=== PATIENT | male | born 1975 | race Caucasian/White ===

== ENCOUNTER 2018-08-30 15:16 | Emergency (ER) | payer OTHER ==
[2018-08-30 15:25] VITALS: BP 116/77
--- NOTE | 2018-08-30 15:38 | UC ---
HPI Wound/Suture Re-check - HPI Summary HPI Summary: wound recheck to right anterior thigh. PT with cyst removed 9 days ago, [address] Vale's office. Sutures due out today and patient removed them himself at home but wound presented with dehiscence shortly after. Pt applied some steristrips on the site, no pain, no discharge or bleeding - History Of Current Complaint Chief Complaint: [place] Stated Complaint: WOUND RECHECK Time Seen by Provider: 08/30/18 15:29 Hx Obtained From: Patient Onset/Duration: Sudden Onset, Lasting Hours Severity: Mild Pain Intensity: 3 - Allergies/Home Medications Allergies/Adverse Reactions: Allergies Allergy/AdvReac Type Severity Reaction Status Date / Time No Known Allergies Allergy Verified 08/30/18 15:25 Home Medications: Home Medications levETIRAcetam TAB* [Keppra TAB*] 750 mg PO BID 08/30/18 [History Confirmed 08/30] PMH/Surg Hx/FS Hx/Imm Hx Neurological History: Seizures - Surgical History Surgical History: Yes Surgery Procedure, Year, and Place: brain biopsy. cyst removal to right anterior thigh - Family History Known Family History: Positive: None - Social History Alcohol Use: None Substance Use Type: None Smoking Status (MU): Never Smoked Tobacco Review of Systems Constitutional: Negative Skin: Other - wound All Other Systems Reviewed And Are Negative: Yes Physical Exam Triage Information Reviewed: Yes Appearance: Well-Appearing, No Pain Distress, Well-Nourished Vital Signs: Initial Vital Signs Temp 97.5 F 08/30/18 15:20 Pulse 48 08/30/18 15:20 Resp 15 08/30/18 15:20 BP 116/77 08/30/18 15:20 Pulse Ox 100 08/30/18 15:20 Vital Signs Reviewed: Yes Eyes: Positive: Conjunctiva Clear ENT: Positive: Hearing grossly normal Neck: Positive: Supple Respiratory: Positive: Chest non-tender Cardiovascular: Positive: Pulses Normal, Brisk Capillary Refill Abdomen Description: Positive: Nontender Skin: Positive: Other - 1cm longitudinal open wound on midline of anterior right thigh, no discharge, no bleeding, non tender Course/Dx - Course Course Of Treatment: Wound dehiscense, steristrips aplied, care of wound reviewed with patient, f/u with PCP in 5 days. - Differential Dx - Laceration/Wound Provider Diagnoses: dehiscence of wound Discharge - Sign-Out/Discharge Documenting (check all that apply): Patient Departure All imaging exams completed and their final reports reviewed: No Studies - Discharge Plan Condition: Stable Disposition: HOME Patient Education Materials: Wound Dehiscence (ED), Steristrips (ED) Referrals: Maninder Vale MD [Primary Care Provider] - - Billing Disposition and Condition Condition: STABLE Disposition: Home
== END 2018-08-30 16:08 | disposition home or self-care (01) ==
LOC: UCEAST 15:16
DX: T81.30XA Disruption of wound, unspecified, initial encounter (principal); R56.9 Unspecified convulsions; Z79.899 Other long term (current) drug therapy
CPT/HCPCS: 99202; G0463